=== PATIENT | female | born 1980 | race Caucasian/White ===

== ENCOUNTER 2018-01-05 15:25 | Emergency (ER) | payer OTHER ==
[2018-01-05] MEDS ORDERED: RINGERS SOLUTION,LACTATED 1,000 ML IV ONE (16:15)
[2018-01-05] MEDS ORDERED: ONDANSETRON HCL INJ/PF 4 MG/2 ML SDV IV ONE (16:15)
--- NOTE | 2018-01-05 16:17 | ER Document Report ---
ED Medical Screen (RME) - General Chief Complaint: Flu Symptoms Stated Complaint: DIARRHEA/FEVER Time Seen by Provider: 01/05/18 16:10 Notes: RAPID MEDICAL EVALUATION DISCLOSURE I have seen this patient as part of a Rapid Medical Evaluation and, if applicable, placed any initially appropriate orders. The patient will be seen and fully evaluated, including a full history and physical exam, by a provider ( in Main ED or Fast Track) when a room becomes available. 37-year-old female here with complaints of nausea diarrhea and upper abdominal pain that started 2-3 days ago. Her son was sick with the same symptoms earlier in the week and then she became sick. She has not had any vomiting but has also had some low-grade fevers body aches. She has been drinking Pedialyte and taking Motrin with some relief. EXAM Tachycardic Mild to moderate epigastric tenderness Minimal right upper quadrant tenderness No lower quadrant tenderness TRAVEL OUTSIDE OF THE [place] IN LAST 30 DAYS: No - Related Data Allergies/Adverse Reactions: dichloralphenazone [From Midrin] Allergy (Verified 01/05/18 16:08) isometheptene [From Midrin] Allergy (Verified 01/05/18 16:08) Past Medical History - Social History Chew tobacco use (# tins/day): No Frequency of alcohol use: None Drug Abuse: None - Past Medical History Cardiac Medical History: Reports: Hx Hypertension Renal/ Medical History: Denies: Hx Peritoneal Dialysis Physical Exam - Vital signs Vitals: Temp Pulse Resp BP Pulse Ox 98.8 F 117 H 18 157/93 H 100 01/05/18 15:29 01/05/18 15:29 01/05/18 15:01/05/18 15:29 01/05/18 15:29 Course - Vital Signs Vital signs: Temp Pulse Resp BP Pulse Ox 98.8 F 117 H 18 157/93 H 100 01/05/18 15:29 01/05/18 15:29 01/05/18 15:29 01/05/18 15:29 01/05/18 15:29
--- NOTE | 2018-01-05 16:52 | ER Document Report ---
ED General - General Chief Complaint: Flu Symptoms Stated Complaint: DIARRHEA/FEVER Time Seen by Provider: 01/05/18 16:10 Mode of Arrival: Ambulatory Information source: Patient TRAVEL OUTSIDE OF THE [place] IN LAST 30 DAYS: No - Related Data Allergies/Adverse Reactions: dichloralphenazone [From Midrin] Allergy (Verified 01/05/18 16:08) isometheptene [From Midrin] Allergy (Verified 01/05/18 16:08) Past Medical History - Social History Smoking Status: Never Smoker Chew tobacco use (# tins/day): No Frequency of alcohol use: None Drug Abuse: None Lives with: Spouse/Significant other Family History: Reviewed & Not Pertinent Patient has suicidal ideation: No Patient has homicidal ideation: No - Past Medical History Cardiac Medical History: Reports: Hx Hypertension Renal/ Medical History: Denies: Hx Peritoneal Dialysis Physical Exam - Vital signs Vitals: Temp Pulse Resp BP Pulse Ox 98.8 F 117 H 18 157/93 H 100 01/05/18 15:29 01/05/18 15:29 01/05/18 15:29 01/05/18 15:29 01/05/18 15:29 Interpretation: Hypertensive, Tachycardic. No: Tachypneic, Febrile - General General appearance: Appears well, Alert In distress: None - HEENT Head: Normocephalic Eyes: Normal Conjunctiva: Normal Ears: Normal Nasal: Normal Mouth/Lips: Normal Mucous membranes: Dry - MILDLY Pharynx: Normal Neck: Normal - Respiratory Respiratory status: No respiratory distress Breath sounds: Normal - Cardiovascular Rhythm: Regular Heart sounds: Normal auscultation Murmur: No - Abdominal Inspection: Normal Distension: No distension Bowel sounds: Hypoactive Tenderness: Tender - MINIMAL, LUQ & LLQ - Back Back: Normal - Extremities General upper extremity: Normal inspection General lower extremity: Normal inspection - Neurological Neuro grossly intact: Yes Cognition: Normal Orientation: AAOx4 - Psychological Associated symptoms: Normal affect, Normal mood - Skin Skin Temperature: Warm Skin Moisture: Dry Skin Color: Normal Skin Turgor: Elastic Course - Vital Signs Vital signs: Temp Pulse Resp BP Pulse Ox 98.8 F 117 H 18 157/93 H 100 01/05/18 15:29 01/05/18 15:29 01/05/18 15:29 01/05/18 15:29 01/05/18 15:29 - Laboratory Result Diagrams: 01/05/18 16:30 01/05/18 16:30 Laboratory results interpreted by me: 01/05/18 01/05/18 16:30 16:30 RBC 5.51 H Hgb 16.4 H Hct 48.0 H Seg Neutrophils % 79.4 H Alkaline Phosphatase 37 L Total Protein 6.1 L Discharge - Discharge Clinical Impression: Gastroenteritis, Dehydration Condition: Stable Disposition: HOME, SELF-CARE Instructions: Gastroenteritis (adult) ([facility]), Clear Liquid Diet ([facility]), Intravenous (IV) Fluids ([facility]), Antinausea Medication ([facility]) Additional Instructions: CLEAR LIQUID DIET UNTIL APPETITE RETURNS, THEN GRADUALLY ADVANCE DIET. YOU MAY TAKE ZOFRAN FOR NAUSEA CONTROL IF NEEDED. FOLLOW UP WITH YOUR PRIMARY CARE PROVIDER OR RETURN TO E.R. IF PROBLEMS. Prescriptions: Ondansetron [Zofran Odt 4 mg Tablet] 1 - 2 tab PO Q4H #10 tab.[email or web address]
[2018-01-05 16:56] LABS: ABSOLUTE LYMPHOCYTES (AUTO) 0.7 10^3/uL (0.5-4.7); ABSOLUTE MONOCYTES (AUTO) 0.3 10^3/uL (0.1-1.4); ABSOLUTE NEUT (AUTO) 3.9 10^3/uL (1.7-8.2); BASOPHILS % (AUTO) 0.3 % (0-2); EOSINOPHILS % (AUTO) 0.2 % (0-6); HEMOGLOBIN 16.4 g/dL (12.0-15.5); LYMPHOCYTES % (AUTO) 13.6 % (13-45); MEAN CORPUSCULAR HEMOGLOBIN 29.7 pg (27.0-33.4); MEAN CORPUSCULAR HGB CONC 34.1 g/dL (32.0-36.0); MEAN CORPUSCULAR VOLUME 87 fl (80-97); MONOCYTES % (AUTO) 6.5 % (3-13); PLATELET COUNT 168 10^3/uL (150-450); RED BLOOD COUNT 5.51 10^6/uL (3.72-5.28); RED CELL DISTRIBUTION WIDTH 12.9 % (11.5-14.0); SEGMENTED NEUTROPHILS % (AUTO) 79.4 % (42-78); TOTAL CELLS COUNTED % (AUTO) 100 %; WHITE BLOOD COUNT 4.9 10^3/uL (4.0-10.5)
[2018-01-05] MEDS ORDERED: RINGERS SOLUTION,LACTATED 1,000 ML IV PRN (17:10)
[2018-01-05 17:13] LABS: ALANINE AMINOTRANSFERASE 29 U/L (9-52); ALBUMIN 3.7 g/dL (3.5-5.0); ALKALINE PHOSPHATASE 37 U/L (38-126); ANION GAP 13 (5-19); ASPARTATE AMINO TRANSFERASE 22 U/L (14-36); BILIRUBIN,DIRECT 0.3 mg/dL (0.0-0.4); BILIRUBIN,TOTAL 0.5 mg/dL (0.2-1.3); BLOOD UREA NITROGEN 12 mg/dL (7-20); CALCIUM 8.4 mg/dL (8.4-10.2); CARBON DIOXIDE 24 mmol/L (22-30); CHLORIDE 106 mmol/L (98-107); GLUCOSE 100 mg/dL (75-110); LIPASE 54.2 U/L (23-300); POTASSIUM 3.6 mmol/L (3.6-5.0); SODIUM 142.5 mmol/L (137-145); TOTAL PROTEIN 6.1 g/dL (6.3-8.2)
[2018-01-05 18:58] VITALS: BP 130/93
== END 2018-01-05 18:58 | disposition home or self-care (01) ==
LOC: ER 15:25
DX: E86.0 Dehydration (principal); K52.9 Noninfective gastroenteritis and colitis, unspecified; R50.9 Fever, unspecified; I10 Essential (primary) hypertension; R00.0 Tachycardia, unspecified
CPT/HCPCS: 99283; 96361; 96374; 36415; 83690; 85025; 80053; J2405; J7120